=== PATIENT | female | born 1955 | race Hispanic/Latino ===

== ENCOUNTER 2018-05-27 18:12 | Emergency (ER) | payer BC ==
--- NOTE | 2018-05-27 18:48 | RAD REPORT ---
EXAM DESCRIPTION: CT - Head Brain Wo Cont - 05/27/2018 6:42 pm CLINICAL HISTORY: MENTAL STATUS CHANGE Drowsiness COMPARISON: No comparisons TECHNIQUE: All CT scans are performed using dose optimization technique as appropriate and may inclu de automated exposure control or mA/KV adjustment according to patient size. FINDINGS: No intracranial hemorrhage, hydrocephalus or extra-axial fluid collection.Mild periventric ular chronic microvascular ischemic changes are suspected, greater on the left.No areas of brain bozena a or evidence of midline shift. The paranasal sinuses and mastoids are clear. The calvarium is intact. IMPRESSION: No acute intracranial abnormality. If clinical symptomology persists or progresses, con account service associate MR brain followup imaging.
--- NOTE | 2018-05-27 19:08 | RAD REPORT ---
EXAM DESCRIPTION: RAD - Chest Single View - 05/27/2018 6:54 pm CLINICAL HISTORY: Altered mental status Chest pain. COMPARISON: No comparisons FINDINGS: Portable technique limits examination quality. Linear subsegmental atelectasis is present in the left lung base. The lungs are otherwise clear. The heart is normal in size. No displaced fractures. IMPRESSION: No acute intrathoracic process suspected.
[2018-05-27 19:09] LABS: Absolute Lymphocytes (CBC) 2.1 K/uL (0.7-4.9); Absolute Monocytes 0.6 K/uL (0.1-1.3); Hematocrit 44.4 % (36.0-45.0); Lymphocytes % 30.5 % (15.3-44.8); MCV 96.1 fL (80-100); MPV 8.2 fL (7.6-11.3); Monocytes % 8.5 % (3.3-12.3); RBC Red Blood Cell Count 4.62 M/uL (3.86-4.86)
[2018-05-27 19:10] LABS: Protime INR 0.93
[2018-05-27 19:24] LABS: Urine Bacteria <20 /HPF (<20); Urine Culture Reflex Order NOT NEEDED; Urine RBC <5 /HPF (NONE SEEN)
[2018-05-27 19:29] LABS: Barbiturates NEGATIVE (NEGATIVE); Benzodiazepines NEGATIVE (NEGATIVE); Cocaine NEGATIVE (NEGATIVE); METHAMPHETAM NEGATIVE (NEGATIVE); Methadone NEGATIVE (NEGATIVE); Opiates NEGATIVE (NEGATIVE); Phencyclidine NEGATIVE (NEGATIVE); THC Cannibis POSITIVE (NEGATIVE)
[2018-05-27 19:29] LABS: ALT/SGPT 27 U/L (12-78); AST/SGOT 27 U/L (15-37); Albumin 3.9 g/dL (3.4-5.0); Alkaline Phosphatase 89 U/L (45-117); BUN Blood Urea Nitrogen 9 mg/dL (7-18); Bicarbonate 21 mmol/L (21-32); Bilirubin Direct < 0.1 mg/dL (0-0.2); Bilirubin Total 0.2 mg/dL (0.2-1.0); Glucose Level 143 mg/dL (74-106); Magnesium 2.2 mg/dL (1.8-2.4); NT PRO-BNP 100 pg/mL (<125); Potassium 4.3 mmol/L (3.5-5.1); Protein, Total 8.3 g/dL (6.4-8.2); Sodium Level 138 mmol/L (136-145); Troponin (Emerg Dept Use Only) < 0.02 ng/mL (0.0-0.045)
[2018-05-27 19:48] LABS: Urine Blood NEGATIVE (NEG); Urine Glucose NEGATIVE (NEG); Urine Protein NEGATIVE (NEG)
[2018-05-27] MEDS ORDERED: ONDANSETRON 4 MG/2 ML VIAL ONE (19:59)
[2018-05-27] MEDS ORDERED: NA CHLORIDE 0.9% 1,000 ML ONE (20:02)
--- NOTE | 2018-05-27 21:00 | EDPHYS ---
Physician Documentation [facility] Name: Ann-Marie Cabral Age: 63 yrs Sex: Female : 1955 Arrival Date: 05/27/2018 Time: 18:16 Bed 4 Private MD: ED Physician Johnathon Coronel HPI: 05/27 19:00 This 63 yrs old Female presents to ER via EMS with complaints of Altered pm1 Mental Status. 19:00 The patient presents with decreased mental status. Onset: The symptoms/episode pm1 began/occurred After lunch today. Patient appears to be more affected by her alcohol consumption than her norm. Possible causes: alcohol. Associated signs and symptoms: Pertinent negatives: abdominal pain, chest pain, diaphoresis, dizziness, headache, numbness, shortness of breath, tingling, weakness. Current symptoms: In the emergency department the patient's symptoms have improved. Patient's baseline: Neuro: alert and fully oriented, Motor: no deficits, Ambulation: walks without assistance, Speech: normal. The patient has not recently seen a physician, the patient's primary care provider is Dr. Dr. Jasso. Patient admits to drinking 3-4 glasses of red wine today. Historical: - Allergies: 18:19 No Known Allergies; hb - Home Meds: 18:19 None [Active]; hb - PMHx: 18:19 Diabetes - NIDDM; Hypertension; hb - PSHx: 18:19 None; hb - Immunization history:: Adult Immunizations up to date. - Social history:: Smoking status: Patient/guardian denies using tobacco. - Ebola Screening: : No symptoms or risks identified at this time. ROS: 19:00 Constitutional: Negative for fever, chills, and weight loss, Eyes: Negative for injury, pm1 pain, redness, and discharge, ENT: Negative for injury, pain, and discharge, Neck: Negative for injury, pain, and swelling, Cardiovascular: Negative for chest pain, palpitations, and edema, Respiratory: Negative for shortness of breath, cough, wheezing, and pleuritic chest pain, Abdomen/GI: Negative for abdominal pain, nausea, vomiting, diarrhea, and constipation, Back: Negative for injury and pain, : Negative for injury, bleeding, discharge, and swelling, MS/Extremity: Negative for injury and deformity, Skin: Negative for injury, rash, and discoloration, Neuro: Negative for headache, weakness, numbness, tingling, and seizure. 19:00 Neuro: Positive for altered mental status, per family. Exam: 19:00 Head/Face: Normocephalic, atraumatic. Eyes: Pupils equal round and reactive to light, pm1 extra-ocular motions intact. Lids and lashes normal. Conjunctiva and sclera are non-icteric and not injected. Cornea within normal limits. Periorbital areas with no swelling, redness, or edema. ENT: Nares patent. No nasal discharge, no septal abnormalities noted. Tympanic membranes are normal and external auditory canals are clear. Oropharynx with no redness, swelling, or masses, exudates, or evidence of obstruction, uvula midline. Mucous membranes moist. Neck: Trachea midline, no thyromegaly or masses palpated, and no cervical lymphadenopathy. Supple, full range of motion without nuchal rigidity, or vertebral point tenderness. No Meningismus. Chest/axilla: Normal chest wall appearance and motion. Nontender with no deformity. No lesions are appreciated. Cardiovascular: Regular rate and rhythm with a normal S1 and S2. No gallops, murmurs, or rubs. Normal PMI, no JVD. No pulse deficits. Respiratory: Lungs have equal breath sounds bilaterally, clear to auscultation and percussion. No rales, rhonchi or wheezes noted. No increased work of breathing, no retractions or nasal flaring. Abdomen/GI: Soft, non-tender, with normal bowel sounds. No distension or tympany. No guarding or rebound. No evidence of tenderness throughout. Back: No spinal tenderness. No costovertebral tenderness. Full range of motion. Skin: Warm, dry with normal turgor. Normal color with no rashes, no lesions, and no evidence of cellulitis. MS/ Extremity: Pulses equal, no cyanosis. Neurovascular intact. Full, normal range of motion. 19:00 Constitutional: The patient appears in no acute distress, alert, awake, comfortable, non-diaphoretic, non-toxic, well developed, well hydrated, well groomed, well nourished, smells of alcohol, ETOH. 19:00 Neuro: Orientation: is normal, Cranial nerves: CN II- XII are normal as tested, Motor: moves all fours, strength is normal, strength is 5/5 in all extremities, Sensation: is normal, no obvious gross deficits. Vital Signs: 18:18 BP 147 / 93; Pulse 80; Resp 16; Temp 98.2(O); Pulse Ox 100% on R/A; Pain 0/10; hb 19:25 BP 102 / 76; Pulse 84; Resp 15; Pulse Ox 99% on R/A; tl2 19:57 Weight 74.84 kg; Height 5 ft. 4 in. (162.56 cm); tl1 20:40 BP 126 / 82; Pulse 93; Resp 20; Pulse Ox 98% on R/A; Pain 0/10; tl2 21:21 BP 131 / 91; Pulse 77; Resp 17; Temp 98.3(O); Pulse Ox 99% on R/A; Pain 0/10; tl2 19:57 Body Mass Index 28.32 (74.84 kg, 162.56 cm) tl1 MDM: 18:20 Patient medically screened. pm1 20:00 ED course: Patient admitted to the use of marijuana on Wednesday and today. Patient pm1 reported that she drank 3 to 4 glasses of red wine at lunch today. 20:03 Data reviewed: vital signs. Data interpreted: Pulse oximetry: on room air is 99 %. pm1 Interpretation: normal. 20:45 Counseling: I had a detailed discussion with the patient and/or guardian regarding: the pm1 historical points, exam findings, and any diagnostic results supporting the discharge/admit diagnosis, lab results, radiology results, the need for outpatient follow up, Dr. Jasso for evaluation of grief and assistance with ETOH cessation. Patient has been drinking ETOH for the past 5 months due to the of her of 31 years. . 05/27 18:27 Order name: Basic Metabolic Panel pm1 05/27 18:27 Order name: CBC with Diff pm1 05/27 18:27 Order name: LFT's; Complete Time: 19:59 pm1 05/27 18:27 Order name: Magnesium; Complete Time: 19:59 pm1 05/27 18:27 Order name: NT PRO-BNP; Complete Time: 19:59 pm1 05/27 18:27 Order name: PT-INR; Complete Time: 19:14 pm1 05/27 18:27 Order name: CT Head Brain wo Cont; Complete Time: 18:50 pm1 05/27 18:27 Order name: Troponin (emerg Dept Use Only); Complete Time: 19:59 pm1 05/27 18:27 Order name: UDS; Complete Time: 19:59 pm1 05/27 18:27 Order name: ETOH Level; Complete Time: 19:59 pm1 05/27 18:27 Order name: Urine Microscopic Only; Complete Time: 19:59 pm1 05/27 18:28 Order name: Basic Metabolic Panel; Complete Time: 19:59 EDMS 05/27 18:28 Order name: CBC with Automated Diff; Complete Time: 19:14 EDMS 05/27 18:44 Order name: Urine Dipstick--Ancillary (enter results); Complete Time: 19:59 lt1 05/27 18:27 Order name: XRAY Chest (1 view); Complete Time: 19:14 pm1 05/27 18:27 Order name: EKG; Complete Time: 18:28 pm1 05/27 18:27 Order name: Cardiac monitoring; Complete Time: 19:02 pm1 05/27 18:27 Order name: EKG - Nurse/Tech; Complete Time: 19:02 pm1 05/27 18:27 Order name: IV Saline Lock; Complete Time: 18:45 pm1 05/27 18:27 Order name: Labs collected and sent; Complete Time: 18:45 pm1 05/27 18:27 Order name: O2 Per Protocol; Complete Time: 18:44 pm1 05/27 18:27 Order name: O2 Sat Monitoring; Complete Time: 18:44 pm1 05/27 18:27 Order name: Urine Dipstick-Ancillary (obtain specimen); Complete Time: 18:44 pm1 Administered Medications: 19:57 Drug: NS 0.9% 1000 ml Route: IV; Rate: 1 bolus; Site: left antecubital; tl1 21:09 Follow up: IV Status: Completed infusion tl2 19:58 Drug: Zofran 4 mg Route: IVP; Infused Over: 2 mins; Site: left antecubital; tl1 21:10 Follow up: Response: No adverse reaction; Nausea is decreased tl2 21:09 Drug: Zofran 4 mg Route: PO; tl2 21:10 Follow up: Response: No adverse reaction; Medication administered at discharge. tl2 Disposition: 05/27/18 21:00 Discharged to Home. Impression: Alcohol abuse, Cannabis abuse. - Condition is Stable. - Discharge Instructions: Finding Treatment for Addiction, Alcohol Use Disorder, Cannabis Use Disorder, Alcohol Abuse and Nutrition. - Medication Reconciliation Form, Thank You Letter form. - Follow up: Arsh Jasso; When: 2 - 3 days; Reason: Recheck today's complaints, Continuance of care, Re-evaluation by your physician. - Problem is new. - Symptoms have improved. Signatures: Dispatcher [employer] EDMS Matilda Phoenix RN RN tl1 Bismark Zamarripa, HAILEE SWITCH ADJUSTER pm1 Myranda Elliott RN RN Claudia Holm RN RN tl2 Corrections: (The following items were deleted from the chart) 18:44 18:27 [place] ordered. pm1 jl7 21:22 21:00 05/27/2018 21:00 Discharged to Home. Impression: Alcohol abuse; Cannabis abuse. tl2 Condition is Stable. Discharge Instructions: Finding Treatment for Addiction, Alcohol Use Disorder, Cannabis Use Disorder, Alcohol Abuse and Nutrition. Forms are Medication Reconciliation Form, Thank You Letter, Antibiotic Education, Prescription Opioid Use. Follow up: Arsh Jasso; When: 2 - 3 days; Reason: Recheck today's complaints, Continuance of care, Re-evaluation by your physician. Problem is new. Symptoms have improved. pm1
--- NOTE | 2018-05-27 21:00 | ER ---
Nurse's Notes [facility] Name: Ann-Marie Cabral Age: 63 yrs Sex: Female : 1955 Arrival Date: 05/27/2018 Time: 18:16 Bed 4 Private MD: Diagnosis: Alcohol abuse;Cannabis abuse Presentation: 05/27 18:16 Presenting complaint: EMS states: Daughter called out for altered mental status, pt hb reported drinking 2-4 glasses of red wine with lunch at 1300 today. Transition of care: patient was not received from another setting of care. Onset of symptoms was May 27, 2018. Risk Assessment: Do you want to hurt yourself or someone else? Patient reports no desire to harm self or others. Initial Sepsis Screen: Does the patient meet any 2 criteria? No. Patient's initial sepsis screen is negative. Does the patient have a suspected source of infection? No. Patient's initial sepsis screen is negative. Care prior to arrival: Glucose check: 171. 18:16 Method Of Arrival: EMS: [facility] hb 18:16 Acuity: DARRELL 2 hb Historical: - Allergies: 18:19 No Known Allergies; hb - Home Meds: 18:19 None [Active]; hb - PMHx: 18:19 Diabetes - NIDDM; Hypertension; hb - PSHx: 18:19 None; hb - Immunization history:: Adult Immunizations up to date. - Social history:: Smoking status: Patient/guardian denies using tobacco. - Ebola Screening: : No symptoms or risks identified at this time. Screenin:20 Abuse screen: Denies threats or abuse. Denies injuries from another. Nutritional hb screening: No deficits noted. Tuberculosis screening: No symptoms or risk factors identified. Fall Risk Total Davila Fall Scale indicates High Risk Score (45 or more points). Fall prevention measures have been instituted. Side Rails Up X 2 Frequent Obs/Assessments Occuring Family Present and informed to notify staff if the need to leave the bedside As available patient and family educated on Fall Prevention Program and Strategies. Assessment: 18:20 General: Appears in no apparent distress. Behavior is calm, cooperative, Smells of hb alcohol. Pain: Denies pain. Neuro: Level of Consciousness is awake, alert, obeys commands, Oriented to person, place, situation. Cardiovascular: Heart tones S1 S2 present Capillary refill < 3 seconds Patient's skin is warm and dry. Respiratory: Airway is patent Trachea midline Respiratory effort is even, unlabored, Respiratory pattern is regular, symmetrical, Breath sounds are clear bilaterally. GI: No signs and/or symptoms were reported involving the gastrointestinal system. : No signs and/or symptoms were reported regarding the genitourinary system. EENT: No signs and/or symptoms were reported regarding the EENT system. Derm: No signs and/or symptoms reported regarding the dermatologic system. Skin is intact, is healthy with good turgor, Skin is pink, warm \T\ dry. Musculoskeletal: No signs and/or symptoms reported regarding the musculoskeletal system. 21:18 Reassessment: Patient and/or family updated on plan of care and expected duration. Pain tl2 level reassessed. Patient is alert, oriented x 3, equal unlabored respirations, skin warm/dry/pink. Patient states feeling better. Patient states symptoms have improved. Neuro: Level of Consciousness is awake, alert, obeys commands, Oriented to person, place, time, situation. Vital Signs: 18:18 BP 147 / 93; Pulse 80; Resp 16; Temp 98.2(O); Pulse Ox 100% on R/A; Pain 0/10; hb 19:25 BP 102 / 76; Pulse 84; Resp 15; Pulse Ox 99% on R/A; tl2 19:57 Weight 74.84 kg; Height 5 ft. 4 in. (162.56 cm); tl1 20:40 BP 126 / 82; Pulse 93; Resp 20; Pulse Ox 98% on R/A; Pain 0/10; tl2 21:21 BP 131 / 91; Pulse 77; Resp 17; Temp 98.3(O); Pulse Ox 99% on R/A; Pain 0/10; tl2 19:57 Body Mass Index 28.32 (74.84 kg, 162.56 cm) tl1 ED Course: 18:16 Patient arrived in ED. hb 18:17 Triage completed. hb 18:18 Arm band placed on right wrist. hb 18:20 Bismark Zamarripa NP is PHCP. pm1 18:20 Johnathon Coronel MD is Attending Physician. pm1 18:20 Patient has correct armband on for positive identification. Placed in gown. Bed in low hb position. Call light in reach. Side rails up X2. Adult w/ patient. 18:[address] sj 18:38 Melvin Suero, RN is Primary Nurse. jl7 18:[address] via stretcher. sv 18:39 Urine collected: clean catch specimen, clear. jl7 18:42 CT Head Brain wo Cont In Process Unspecified. EDMS 18:54 XRAY Chest (1 view) In Process Unspecified. EDMS 18:55 X-ray(s) taken. sv 19:02 EKG done, by ED staff, reviewed by Johnathon Coronel MD. sv 19:05 Basic Metabolic Panel Sent. sv 19:05 CBC with Diff Sent. sv 19:09 Initial lab(s) drawn, by ga, sent to lab. Inserted saline lock: 22 gauge in left jl7 antecubital area, using aseptic technique. Blood collected. 21:00 Arsh Jasso MD is Referral Physician. pm1 21:19 No provider procedures requiring assistance completed. IV discontinued, intact, tl2 bleeding controlled, No redness/swelling at site. Pressure dressing applied. Administered Medications: 19:57 Drug: NS 0.9% 1000 ml Route: IV; Rate: 1 bolus; Site: left antecubital; tl1 21:09 Follow up: IV Status: Completed infusion tl2 19:58 Drug: Zofran 4 mg Route: IVP; Infused Over: 2 mins; Site: left antecubital; tl1 21:10 Follow up: Response: No adverse reaction; Nausea is decreased tl2 21:09 Drug: Zofran 4 mg Route: PO; tl2 21:10 Follow up: Response: No adverse reaction; Medication administered at discharge. tl2 Outcome: 21:00 Discharge ordered by . pm1 21:19 Discharged to home via wheelchair, with family. tl2 21:19 Condition: good 21:19 Discharge instructions given to patient, family, Instructed on discharge instructions, follow up and referral plans. drinking cessation 21:22 Patient left the ED. tl2 Signatures: Dispatcher [employer] Lissy Carrillo RN Aleta Aly Tonya, RN RN tl1 Bismark Zamarripa, STUDIO COORDINATOR STUDIO COORDINATOR pm1 Myranda Elliott RN RN hb Knox, Taylor, RN RN tl2 Suero, Jahala, RN RN jl7
[2018-05-27] MEDS ORDERED: ONDANSETRON 4 MG (ODT) TAB ONE (21:17)
--- NOTE | 2018-05-28 16:10 | EKG ---
Test Date: 2018-05-27 Test Time: 18:52:38 Weight Control Lecturer: NILA MEASUREMENT RESULTS: Intervals: Rate: 78 AR: 158 QRSD: 82 QT: 402 QTc: 458 [place]: P: 59 AR: 158 QRS: 26 T: 40 INTERPRETIVE STATEMENTS: Normal sinus rhythm Normal ECG No previous ECG available for comparison Electronically Signed On 05-28-18 16:09:13 FRONT END UI DEVELOPER by Dave Boss
== END 2018-05-27 21:22 | disposition home or self-care (01) ==
LOC: ER 18:12
DX: F10.10 Alcohol abuse, uncomplicated (principal); F12.10 Cannabis abuse, uncomplicated; I10 Essential (primary) hypertension
CPT/HCPCS: 36415; 70450; 71045; 80048; 80076; 80307; 80320; 81003; 81015; 83735; 83880; 84484; 85025; 85610; 93005; 96361; 96374; 99284; J2405; J7030